=== PATIENT | female | born 1995 | race African-American/Black ===

== ENCOUNTER 2019-01-02 19:53 | Emergency (ER) | payer BC ==
[2019-01-02] MEDS ORDERED: Ibuprofen TAB* 600 MG PO ONE (20:36)
--- NOTE | 2019-01-02 20:38 | ED ---
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 Denies any other pain injury or symptoms. Patient is ambulatory. - History of Current Complaint Chief Complaint: EDExtremityLower Stated Complaint: RT ANKLE INJURY PER MOTHER Time Seen by Provider: 01/02/19 20:28 Hx Obtained From: Patient, Family/Economic Historian Mechanism Of Injury: Fall From A Standing Position Onset of Pain: Immediate Onset/Duration: Hours Severity Initially: Severe Severity Currently: Severe Pain Intensity: 8 Pain Scale Used: 0-10 Numeric Timing: Constant Location: Is Discrete @ Character Of Pain: Aching, Throbbing Associated Signs And Symptoms: Positive: Negative Aggravating Factor(s): Standing, Ambulation, Weight Bearing Alleviating Factor(s): Rest, Elevation Able to Bear Weight: Yes - Allergies/Home Medications Allergies/Adverse Reactions: Allergies Allergy/AdvReac Type Severity Reaction Status Date / Time No Known Allergies Allergy Verified 01/02/19 19:58 PMH/Surg Hx/FS Hx/Imm Hx Endocrine/Hematology History: Denies: Hx Anticoagulant Therapy Cardiovascular History: Denies: Hx Pacemaker/ICD History: Denies: Hx Dialysis Sensory History: Denies: Hx Legally Blind Opthamlomology History: Denies: Hx Eye Prosthesis EENT History: Denies: Hx Deafness Neurological History: Denies: Hx Dementia Psychiatric History: Denies: Hx Autism Infectious Disease History: No Infectious Disease History: Denies: Traveled Outside the [place] in Last 30 Days - Family History Known Family History: Positive: Non-Contributory - Social History Alcohol Use: Occasionally Hx Substance Use: No Hx Tobacco Use: No Review of Systems Constitutional: Negative Eyes: Negative ENT: Negative Cardiovascular: Negative Respiratory: Negative Gastrointestinal: Negative Genitourinary: Negative Musculoskeletal: Other Skin: Negative Neurological: Negative Psychological: Normal All Other Systems Reviewed And Are Negative: Yes Physical Exam - Summary Physical Exam Summary: No swelling, ecchymosis, erythema, deformity noted to right ankle. Normal exam of foot. Mild tenderness to palpation of lateral right ankle. Nontender. Triage Information Reviewed: Yes Vital Signs On Initial Exam: Initial Vitals Temp Pulse Resp BP Pulse Ox 99 F 75 16 141/90 100 01/02/19 19:55 01/02/19 19:55 01/02/19 19:55 01/02/19 19:55 01/02/19 19:55 Vital Signs Reviewed: Yes Appearance: Positive: Well-Appearing Skin: Positive: Warm Head/Face: Positive: Normal Head/Face Inspection Eyes: Positive: Normal Neck: Positive: Supple Respiratory/Lung Sounds: Positive: Clear to Auscultation Cardiovascular: Positive: Normal Abdomen Description: Positive: Nontender Musculoskeletal: Positive: Normal Neurological: Positive: Normal Psychiatric: Positive: Normal AVPU Assessment: Alert - [place] Coma Scale Best Eye Response: 4 - Spontaneous Best Motor Response: 6 - Obeys Commands Best Verbal Response: 5 - Oriented Coma Scale Total: 15 Diagnostics - Vital Signs Vital Signs Temp Pulse Resp BP Pulse Ox 01/02/19 19:55 99 F 75 16 141/90 100 - Laboratory Lab Statement: Any lab studies that have been ordered have been reviewed, and results considered in the medical decision making process. 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 Denies any other pain injury or symptoms. Patient is ambulatory. Vital signs within normal limits. X-ray right ankle negative. Ankle gel splint administered by nurse and patient provided with crutches. - Diagnoses Provider Diagnoses: Ankle sprain Discharge - Sign-Out/Discharge Documenting (check all that apply): Patient Departure Patient Received Moderate/Deep Sedation with Procedure: No - Discharge Plan Condition: Stable Disposition: HOME Patient Education Materials: Ankle Sprain (ED), Ankle Stirrup Splint (ED) Forms: *Work Release Referrals: Kong GEORGE,Willis [place] [Primary Care Provider] - Ricarda Brito MD [Medical Doctor] - Additional Instructions: Rest, ice and ibuprofen for pain and swelling. Weightbearing as tolerated. Symptoms should improve in a week, if they do not, follow-up with orthopedics Dr. Brito for further evaluation. Return to the ED for any new or worsening symptoms. - Billing Disposition and Condition Condition: STABLE Disposition: Home
[2019-01-02 21:19] VITALS: BP 126/72
== END 2019-01-02 21:16 | disposition home or self-care (01) ==
LOC: ED 19:53
DX: S93.401A Sprain of unspecified ligament of right ankle, initial encounter (principal); X58.XXXA Exposure to other specified factors, initial encounter; Y93.45 Activity, cheerleading; Y92.838 Other recreation area as the place of occurrence of the external cause
CPT/HCPCS: 99283; A9270-GY